=== PATIENT | female | born 1975 | race African-American/Black ===

== ENCOUNTER → 2017-05-25 | Outpatient (CLI) | payer BC ==
[~2017-05-25] MED LIST: NO MEDICATIONS
--- NOTE | ~2017-05-25 | US98 ---
[facility] A Service of [facility] & [facility] [place] RADIOLOGY TEXT RESULTS PATIENT: NEVIN CHUNG LOCATION: [facility] : 77 UNIT #: [id number] AGE: [address]: Adrian Panda MD SEX: F ORDER DR: [id number] [facility] [address] [place], [place] [address] [id number] O MR#: [id number] Acc #: [id number] NAME: NEVIN CHUNG : 1975 SEX: F STUDY DATE/TIME: 05/25/2017 12:52 UNIT: [facility] ROOM: STUDY DESCRIPTION: US Pelvic Non-OB Complete Attending Physician: Adrian Panda M.D. Ordering Physician: Adrian Padna M.D. Primary Care Physician: Adrian Panda M.D. MEDICAL IMAGING REPORT This report is preliminary unless electronic signature is present EXAM Transabdominal and transvaginal pelvic ultrasound 05/25/2017 HISTORY Right sided pelvic pain with menses for 6 months. FINDINGS Transabdominal and transvaginal pelvic ultrasound was performed. Endovaginal ultrasound was performed for attempted better visualization of the adnexal structures. The bladder is normal in appearance. Uterus measures 12.8 cm craniocaudal x 5.1 cm AP x 6.3 cm transverse. Endometrial stripe measured 1 cm. There is an approximate 4.8 cm fibroid along the posterior aspect of the uterine body. The right ovary measured 1.3 cm x 1.5 cm x 2.4 cm while the left ovary measured 1.9 cm x 1.9 cm x 3.3 cm. There is no adnexal mass and there is no free fluid in the pelvis. IMPRESSION A 4.8 cm fibroid along the posterior aspect of the uterine body; otherwise, negative pelvic ultrasound. Dictated by... Robert Copeland M.D. THIS IS AN ELECTRONICALLY VERIFIED REPORT Robert Copeland M.D. at 05/28/2017 7:12 AM NATALIA/quentin TD: 05/25/2017 23:26 JOB #: [id number] MEDICAL IMAGING REPORT [facility] A Service of [facility] & [facility] RADIOLOGY TEXT RESULTS PATIENT: NEVIN CHUNG [id number] : [birth year] UNIT #: [id number] AGE: [address]: Adrian Panda MD SEX: F ORDER DR: Page 1 of 1 COPY
== END | disposition home or self-care (01) ==
LOC: CWCC 12:41
DX: R10.813 Right lower quadrant abdominal tenderness (principal); D25.9 Leiomyoma of uterus, unspecified
CPT/HCPCS: 76830; 76856